=== PATIENT | male | born 1975 | race African-American/Black ===

== ENCOUNTER 2016-11-15 04:46 | Observation (INO) | payer BC ==
[2016-11-12 18:28] LABS: HEMATOCRIT 45.5 % (40.0-51.0); HEMOGLOBIN 16.3 g/dL (13.6-17.8)
--- NOTE | ~2016-11-15 | OP ---
Record Of Operation [facility] [address] [place]. [address] NAME: HENRIK DEL RIO : 73 STATUS : DIS Kirsten PAT#: [id number] AGE: 41 ADM/REG DATE : 11/15/16 MR#: [id number] REPORT SERV DATE: 11/19/16 DICTATED BY: JAYNE GENAO II DATE: 11/18/16 REPORT STATUS : Draft TRANSCRIBED BY: MODL DATE: 11/18/16 DATE OF PROCEDURE: 11/15/2016 PREOPERATIVE DIAGNOSES: 1. Left greater than right upper extremity radiculopathy. 2. Cervical spondylosis with stenosis and significant degenerative disk disease. 3. Symptomatic lumbar stenosis and degeneration. POSTOPERATIVE DIAGNOSES: 1. Left greater than right upper extremity radiculopathy. 2. Cervical spondylosis with stenosis and significant degenerative disk disease. 3. Symptomatic lumbar stenosis and degeneration. PROCEDURES: 1. C5-6, C6-7 anterior interbody arthrodesis. 2. Application of prosthetic devices, C5-6, C6-7. 3. Anterior instrumentation, C5-6, C6-7. 4. Use of allograft substitute and bone marrow aspirate. 5. Use of the microscope. SURGEON: Jayne Genao M.D. FLUIDS: One liter lactated Ringer. ESTIMATED BLOOD LOSS: 40 mL. DRAINS: One drain. COMPLICATIONS: None. ANTIBIOTIC: Preoperatively. PREOPERATIVE HISTORY: This is a very friendly 41-year-old gentleman who reports significant pain in the neck radiating into the left arm and into the dorsal aspect of the forearm primarily. He also reports similar pains into the right upper extremity. He also reports significant back pain with radiating leg pain consistent with radiculopathy and stenosis. He has been treated and evaluated partially for his lumbar condition. Please note, that he does want to continue working this up in hopes to potentially treating his lumbar condition prior to return to work. DESCRIPTION OF PROCEDURE: After informed consent was obtained, the patient was brought to the operating room at his request and general anesthesia achieved. He was placed in the supine position and the neck and iliac crest prepped and draped in a sterile fashion. The 5 mL of bone marrow was aspirated from the iliac crest on the right followed by a right-sided longitudinal incision. The interval was explored, the deep cervical fascia incised, and the stone belt sander retractor was placed. The [place] pins were placed into the vertebral bodies Record Of Operation [facility] [address] [place]. [address] NAME: HENIRK DEL RIO : 73 STATUS : DIS Kirsten PAT#: [id number] AGE: 41 ADM/REG DATE : 11/15/16 MR#: [id number] REPORT SERV DATE: 11/19/16 DICTATED BY: JAYNE GENAO II DATE: 11/18/16 REPORT STATUS : Draft TRANSCRIBED BY: VALERIO DATE: 11/18/16 followed by gentle distraction. The microscope was now in place, and under microscopic visualization, the diskectomy was initiated at C5-6 with the knife followed by use of the pituitary rongeurs, Kerrison rongeurs, and the curettes. The endplates were denuded of their cartilage followed by removal of the posterior vertebral body osteophytes. The posterior longitudinal ligament was thickened and also significantly compressing the anterior canal and the exiting nerve roots. The dura was then well identified and confirmed to be well decompressed as were the exiting nerve roots. The prosthetic device was now trialed and placed at C5-6. This contained allograft substitute and bone marrow aspirate. Next, with the prosthetic device now in place, the C6-7 level was now addressed with diskectomy and endplate preparation. The disk was now removed including the preparation of the endplates with the high-speed puma and the Kerrison rongeurs. The posterior longitudinal ligament was now removed and the anterior canal better decompressed at C6-7. The prosthetic device was then well placed at C6-7. This contained allograft substitute and bone marrow aspirate. Next, the [place] pins were removed. The anterior fixation device was now placed with two screws in the C5, C6 and C7. Multiplanar imaging confirmed acceptable placement of the implants. The deep drain was placed followed by a standard closure. Overall please note, the C4-5 level was not surgically addressed as overall I did not feel that it exhibited extensive enough degeneration or stenosis to warrant fusion. At this point, the patient was now extubated and transferred to PACU in stable condition. MARIANGEL/VALERIO Jayne Genao II, M.D. / [id number] CC: Facundo Silveira II, M.D.
[~2016-11-15 04:46] MED LIST: LORATADINE D PO; [UNRECOGNIZED DRUG - CODE] PO
[2016-11-16] MEDS ORDERED: PERCOCET 10/3251 TAB PO (11:09)
[2016-11-16] MEDS ORDERED: MEDROLPAK4 (11:10)
[2016-11-16] MEDS ORDERED: V5 (11:10)
== END 2016-11-16 12:31 | disposition home or self-care (01) ==
LOC: SDC 04:46 → 3SO 12:04
PROVIDERS: Orthopaedic Surgery
PROC: 0RG40K0 Fusion of Cervicothoracic Vertebral Joint with Nonautologous Tissue Substitute, Anterior Approach, Anterior Column, Open Approach (ICD-10-PCS; 2016-11-15)
PROC: 0RG20A0 Fusion of 2 or more Cervical Vertebral Joints with Interbody Fusion Device, Anterior Approach, Anterior Column, Open Approach (ICD-10-PCS; principal; 2016-11-15 07:00)
PROC: 0RG20K0 Fusion of 2 or more Cervical Vertebral Joints with Nonautologous Tissue Substitute, Anterior Approach, Anterior Column, Open Approach (ICD-10-PCS; 2016-11-15 07:00)
DX: M48.02 Spinal stenosis, cervical region (principal); M54.12 Radiculopathy, cervical region; F17.200 Nicotine dependence, unspecified, uncomplicated
CPT/HCPCS: 82962; 85014; 85018; 87641; 88304; 88311; 96374; 96375; 96376; A9270-GY; C1713; G0378; J0690; J1170; J1885; J2250; J2405; J2710; J3010